=== PATIENT | female | born 1990 | race African-American/Black ===

== ENCOUNTER 2023-08-28 11:09 | Day surgery (SDC) | payer OTHER ==
[~2023-08-28] VITALS: Ht 170.2 cm; Wt 65.8 kg
[2023-08-28] MEDS ORDERED: MIDAZOLAM 5 MG/5 ML VIAL ONE (14:20)
[2023-08-28] MEDS ORDERED: LIDOCAINE 2% 100 MG/5 ML UJET TP ONE (14:20)
[2023-08-28] MEDS ORDERED: fentaNYL citrate 0.05 MG/ML VIAL ONE (14:20)
[2023-08-28] MEDS: fentaNYL citrate 0.05 MG/ML VIAL IVP ONE (14:31)
[2023-08-28] MEDS: MIDAZOLAM 2 MG/2 ML VIAL IVP ONE (14:31)
== END 2023-08-28 15:15 | disposition home or self-care (01) ==
LOC: MDS 11:09 → MMU 11:10 → MDS 15:15
PROVIDERS: ATTEND Internal Medicine Gastroenterology
DX: K64.2 Third degree hemorrhoids (principal); F41.9 Anxiety disorder, unspecified; Z80.3 Family history of malignant neoplasm of breast
CPT/HCPCS: 45350; J2250; J3010